=== PATIENT | female | born 1945 | race Caucasian/White ===

== ENCOUNTER 2020-08-13 15:46 | Inpatient (IN) | payer MEDICARE, OTHER ==
[~2020-08-13] VITALS: Ht 167.6 cm; Wt 57.2 kg
[~2020-08-13 15:46] MED LIST: ASCO-317 PO; ASPI-605 PO; CA C1TAB70 PO; CALC-1143 PO; CETI10CA PO; CIPR7.5D OT; CODE1CAP21 PO; FLAX10003 PO; FLUT1DIS3 IH; GUAI600T31 PO; HYDR200T81 PO; MONT10TA22 PO; NEO/3.5O OP; PANT40TA49 PO; POTASSIUM PO; PROG100C15 PO; PROP1DRO4 OP; SLOW-MAG64 MG PO; VALA500T PO; [UNRECOGNIZED DRUG - CODE] PO; [UNRECOGNIZED DRUG - CODE] PO
[2020-08-13] MEDS ORDERED: IV NS 0.9% 1,000 ML BAG IV ONE (16:00)
--- NOTE | 2020-08-13 16:00 | NUR ---
[id number], FOUND BY HOUSKEEPER IN THE FLOOR UNRESPONSIVE. NARCAN 4MG TOTAL GIVEN. PATIENT SOMNOLENT UPON ARRIVAL, ASSISTED TO BED, CHANGED INTO A GOWN, ATTACHED TO THE COMBINER OPERATOR. DR. MCCULLOUGH AT BEDSIDE FOR EVAL.
--- NOTE | 2020-08-13 16:09 | NUR ---
[facility], NEIGHBOR LEFT CONTACT # [phone]
--- NOTE | 2020-08-13 16:10 | NUR ---
IV LINE ESTABLISHED, BLOOD DRAWN AND SENT TO LAB,
--- NOTE | 2020-08-13 16:13 | NUR ---
STRAIGHT CATHETER DONE, URINE OBTAINED AND SENT TO LAB.
[2020-08-13 16:30] LABS: BASOPHILS % (AUTO) 0.2 % (0.0-2.0); EOSINOPHILS % (AUTO) 0.3 % (0.0-6.0); HEMATOCRIT 40 % (33-45); HEMOGLOBIN 12.7 g/dL (11.5-14.8); LYMPHOCYTES # (AUTO) 0.4 /CMM (0.8-4.8); LYMPHOCYTES % (AUTO) 4.9 % (20.0-44.0); MEAN CORPUSCULAR HGB CONC 32 g/dl (31.0-36.0); MEAN CORPUSCULAR VOLUME 95 fL (82-100); MONOCYTES # (AUTO) 0.1 /CMM (0.1-1.30); MONOCYTES % (AUTO) 1.5 % (2.0-12.0); NEUTROPHILS # (AUTO) 7.4 /CMM (1.8-8.9); NEUTROPHILS % (AUTO) 93.1 % (43.0-81.0); PLATELET COUNT (AUTO) 186 /CMM (150-450); RED BLOOD CELL COUNT(AUTO) 4.19 MIL/uL (4.0-5.2)
[2020-08-13 16:40] LABS: BILIRUBIN,URINE Negative (NEGATIVE); COLOR,URINE YELLOW (YELLOW); LEUKOCYTE ESTERASE ,URINE Negative (NEGATIVE); NITRITE, URINE Negative (NEGATIVE); PH,URINE 5.5 (5.0-8.0); PROTEIN,URINE Negative (NEGATIVE); UGLUCOSE Negative (NEGATIVE); UROBILINOGEN,URINE 0.2 EU/dL (0.2)
[2020-08-13 16:40] LABS: CALCIUM, SERUM 8.7 mg/dL (8.5-10.1); CARBON DIOXIDE 24 mmol/L (21-32); CHLORIDE 99 mmol/L (98-107); CREATININE 0.5 mg/dL (0.6-1.3); GLUCOSE 133 mg/dL (74-106); POTASSIUM 3.7 mmol/L (3.5-5.1); SODIUM SERUM 135 mmol/L (136-145); UREA NITROGEN, BLOOD 17 mg/dL (7-18)
[2020-08-13 16:46] LABS: ALANINE AMINOTRANSFERASE 36 U/L (12-78); ALBUMIN 3.7 g/dL (3.4-5.0); ALCOHOL, BLOOD < 3 mg/dL (0-0); ALKALINE PHOSPHATASE 117 U/L (46-116); ASPARTATE AMINOTRANSFERASE 24 U/L (15-37); BILIRUBIN,DIRECT 0.1 mg/dL (0.0-0.2); BILIRUBIN,TOTAL 0.3 mg/dL (0.2-1.0); SERUM AMMONIA 10 umol/L (11-32); TOTAL PROTEIN, SERUM 6.2 g/dL (6.4-8.2)
--- NOTE | 2020-08-13 16:46 | NUR ---
PATIENT CAME BACK FROM CT.
[2020-08-13 16:53] LABS: BACTERIA,URINE 2+ /HPF (None Seen); MUCUS,URINE Few /LPF (None Seen); SQUAMOUS EPITHELIAL CELL,UR Many /HPF (None Seen); URINE AMORPHOUS URATE Moderate /HPF (None Seen)
--- NOTE | 2020-08-13 17:15 | NUR ---
CALLED NURSING SUP FOR TELE BED.
[2020-08-13] MEDS ORDERED: MEMA10TA56 PO (17:39)
[2020-08-13] MEDS ORDERED: DICY20TA11 PO (17:39)
[2020-08-13] MEDS ORDERED: NALTREXONE PO (17:39)
[2020-08-13] MEDS ORDERED: IBUP-1957 MT (17:39)
[2020-08-13] MEDS ORDERED: OXYB10TA30 PO (17:39)
[2020-08-13] MEDS ORDERED: PROG100C15 PO (17:39)
[2020-08-13] MEDS ORDERED: MONT10TA22 PO (17:39)
[2020-08-13] MEDS ORDERED: PITA2TAB PO (17:39)
[2020-08-13] MEDS ORDERED: VALA500T40 PO (17:39)
--- NOTE | 2020-08-13 17:53 | NUR ---
PAGED CHEN MO WILL CALL BACK
[2020-08-13] MEDS ORDERED: IV D5/0.45 NACL 1,000 ML IV PRN (18:30)
[2020-08-13] MEDS ORDERED: Z GUARD REMEDY 2 OZ OINT TP PRN (18:30)
[2020-08-13] MEDS ORDERED: ONDANSETRON HCL/PF 4 MG/2 ML VIAL IVP PRN (18:30)
--- NOTE | 2020-08-13 18:35 | NUR ---
PATIENT ASLEEP. IN NO DISTRESS. VSS
--- NOTE | 2020-08-13 19:06 | NUR ---
TELE 308.1
--- NOTE | 2020-08-13 19:14 | NUR ---
REPORT GIVEN TO KEL PORTER FOR LUIS.
--- NOTE | 2020-08-13 19:29 | NUR ---
CAREGIVER/SLOT MACHINE DEPARTMENT FLOORPERSON =GELACIO [phone]
[2020-08-13 19:38] VITALS: BP 146/84
--- NOTE | 2020-08-13 19:38 | NUR ---
DYNAMITE PACKING MACHINE FEEDER NOTES PT ARRIVED TO UNIT VIA SHANTEL PT A/O X 1-2 CONFUSED NEEDS FREQUENT ORIENTATION. PT ON ROOM AIR TOLERATING WELL. VITAL SIGNS WITHIN NORMAL LIMITS. IV ACCESS NOTED ONT HE RIGHT HAND AND LEFT AC NO REDNESS OR SWELLING NOTED AT SITE. PT SKIN INS INTACT TO DISCOLORATION OR WOUNDS NOTED . PT REPORTS NO PAIN OR DISCOMFORT AT THIS TIME. PT HAS SITTER AT BEDSIDE FOR SI PT IS STATING " WHY AMI HERE I LEFT INSTRUCTIONS WHERE IS MY DOG?" ON REPEAT NURSE EXPLAINED TO PT WHY SHE WAS ADMITTED AND WILL CONTINUE TO BE CLOSELY ,MONITORED. PT ORIENTED TO ROOM ANDD UNIT. PT SAFETY PRECAUTIONS FOLLOWED CLOSELY. SIDE RAILS UP X2 HEAD OF THE BEAD ELEVATED BED LOCKED IN LOWEST POSITION. PT ON TELE MONITOR. WILL CONTINUE TO CLOSELY MONITOR PT THROUGHOUT THE SHIFT.
[2020-08-13] MEDS ORDERED: NALOXONE HCL 0.4 MG/ML AMPUL IV PRN (20:00)
[2020-08-13 20:49] VITALS: BP 146/84
[2020-08-14] VITALS: BP 125/63
--- NOTE | 2020-08-14 00:16 | NUR ---
BLOCK ENGRAVER NOTES PT WANTED WATER NURSE TRIED DOING A BEDSIDE SWALLOW EVAL PT FAILED SWALLOW EVAL PT UNABLE TO FOLLOW COMMANDS AT THIS TIME. PT URINE CULTURE RESULTS RECEIVED RESULTS RELAYED TO DR SMITH NO NEW ORDERS AT THIS TIME. WILL CONTINUE TO MONITOR.
--- NOTE | 2020-08-14 03:30 | NUR ---
BEHAVIORAL HEALTH CASE MANAGER NOTES PT FULLY AWAKE ABLE TO DO SWALLOW EVAL PT PASSED EVAL INFORMED DR SMITH AWAITING FOR ANY NEW ORDERS, PT DOES NOT HAVE ANY SI/HI AT THIS TIME. PT STATED " I DON'T LIKE THIS HOSPITAL I WANTED TO BE TAKEN TO [facility]" " I DON'T KNOW WHAT I WAS THINKING WHEN I TOOK THOSE PILLS I JUST WANT TO KNOW IF MY DOG IS OKAY AND GET OUT OF HERE" PT WAS REPORTING NAUSEA ZOFRAN 4MG WAS ADMINISTERED NAUSEA IMPROVED. WILL CONTINUE TO MONITOR.
[2020-08-14 04:00] VITALS: BP 125/57
--- NOTE | 2020-08-14 05:06 | NUR ---
CASE WORK AIDE NOTES PT REFUSED LAB DRAW WILL ATTEMPT AGAIN LATER RISK AND BENEFITS EXPLAINED X3 REFUSED X 3 WILL CONTINUE TO MONITOR. NO SI/HI AT THIS TIME.
--- NOTE | 2020-08-14 06:46 | NUR ---
MASTER AUTOMOTIVE TECHNICIAN NOTES PT REFUSED LAB DRAW AGAIN SHE DOESNT LIKE THE DRYERMAN/WOMAN SHE WANTS SOMEONE ELSE. RISK AND BENEFITS EXPLAINED X3 REFUSED X 3 PT STATED " IM NOT OPPOSED TO GETTING MY BLOOD DRAWN I JUST DONT WANT ANY OF THOSE THREE THAT CAME IN GET ME SOMEONE ELSE. LAB WILL TRY TO SEND SOMEONE ELSE LATER. PT IS NOT HAVING ANY SI/HI PT STATED " I HAVE A HOUSE IN [place] THAT IM BUYING I NEED TO CALL THE REALTOR MAKE SURE THEY KNOW I STILL WANT THE HOUSE AND TO HOLD IT FOR ME.THIS IS GOING TO BE MY NEW HOUSE."
--- NOTE | 2020-08-14 06:58 | NUR ---
FNP NOTES PT A/O X 4 PT ON ROOM AIR TOLERATING WELL. VITAL SIGNS WITHIN NORMAL LIMITS. IV ACCESS NOTED ON THE RIGHT HAND AND LEFT AC NO REDNESS OR SWELLING NOTED AT SITE. PT REPORTS NO PAIN OR DISCOMFORT AT THIS TIME. PT HAS SITTER AT BEDSIDE FOR SI PT IS STATING " I WANT TO GET OUT OF THIS PLACE I DON'T LIKE THIS HOSPITAL THIS HOSPITAL HAS HORRIBLE REVIEWS I WANTED TO GO TO [facility]" ON REPEAT NURSE EXPLAINED TO PT WHY SHE WAS ADMITTED. PT SAFETY PRECAUTIONS FOLLOWED CLOSELY. SIDE RAILS UP X2 HEAD OF THE BEAD ELEVATED BED LOCKED IN LOWEST POSITION. PT ON TELE MONITOR. WILL ENDORSE CARE TO DAY SHIFT NURSE..
[2020-08-14] MEDS ORDERED: PANT40TA49 PO (07:30)
[2020-08-14] MEDS ORDERED: VALA500T40 PO (07:30)
[2020-08-14] MEDS ORDERED: DICY20TA11 PO (07:30)
[2020-08-14] MEDS ORDERED: MONT10TA22 PO (07:30)
[2020-08-14] MEDS ORDERED: OXYB10TA30 PO (07:30)
[2020-08-14] MEDS ORDERED: PITA2TAB PO (07:30)
[2020-08-14] MEDS ORDERED: PROG100C15 PO (07:30)
--- NOTE | 2020-08-14 07:30 | NUR ---
RN MS NOTES PT IN BED, AWAKE, ALERT AND ORIENTED, NO COMPLAINT AT THIS TIME, RESPIRATIONS NORMAL, IV FLUIDS INFUSING WELL, CALL LIGHT WITHIN REACH, SITTER AT BEDSIDE, NO SI AT THIS TIME, WILL CONTINUE TO MONITOR.
[2020-08-14] MEDS ORDERED: CALC-1143 PO (07:33)
[2020-08-14] MEDS ORDERED: ASPI-605 PO (07:33)
[2020-08-14] MEDS ORDERED: ASCO-317 PO (07:33)
[2020-08-14] MEDS ORDERED: MEMA10TA56 PO (07:33)
[2020-08-14] MEDS ORDERED: FLUT1DIS3 IH (07:33)
[2020-08-14] MEDS ORDERED: IBUP-1957 PO (07:33)
[2020-08-14 08:00] VITALS: BP 147/65
[2020-08-14 08:24] LABS: BASOPHILS % (AUTO) 0.1 % (0.0-2.0); EOSINOPHILS % (AUTO) 4.5 % (0.0-6.0); HEMATOCRIT 38 % (33-45); HEMOGLOBIN 12.4 g/dL (11.5-14.8); LYMPHOCYTES # (AUTO) 0.7 /CMM (0.8-4.8); LYMPHOCYTES % (AUTO) 6.3 % (20.0-44.0); MEAN CORPUSCULAR HGB CONC 32 g/dl (31.0-36.0); MEAN CORPUSCULAR VOLUME 94 fL (82-100); MONOCYTES # (AUTO) 0.6 /CMM (0.1-1.30); MONOCYTES % (AUTO) 5.3 % (2.0-12.0); NEUTROPHILS # (AUTO) 8.7 /CMM (1.8-8.9); NEUTROPHILS % (AUTO) 83.8 % (43.0-81.0); PLATELET COUNT (AUTO) 189 /CMM (150-450); RED BLOOD CELL COUNT(AUTO) 4.08 MIL/uL (4.0-5.2); WHITE BLOOD COUNT (AUTO) 10.4 K/uL (4.3-11.0)
[2020-08-14 09:06] LABS: ALANINE AMINOTRANSFERASE 62 U/L (12-78); ALBUMIN 3.4 g/dL (3.4-5.0); ALKALINE PHOSPHATASE 102 U/L (46-116); ASPARTATE AMINOTRANSFERASE 42 U/L (15-37); BILIRUBIN,DIRECT 0.1 mg/dL (0.0-0.2); BILIRUBIN,TOTAL 0.3 mg/dL (0.2-1.0); CALCIUM, SERUM 8.4 mg/dL (8.5-10.1); CARBON DIOXIDE 23 mmol/L (21-32); CHLORIDE 103 mmol/L (98-107); CREATININE 0.5 mg/dL (0.6-1.3); GLUCOSE 117 mg/dL (74-106); MAGNESIUM 1.8 mg/dL (1.8-2.4); PHOSPHORUS 2.7 mg/dL (2.5-4.9); POTASSIUM 3.3 mmol/L (3.5-5.1); SODIUM SERUM 136 mmol/L (136-145); TOTAL PROTEIN, SERUM 5.8 g/dL (6.4-8.2); UREA NITROGEN, BLOOD 16 mg/dL (7-18)
[2020-08-14 09:18] LABS: CHOLESTEROL 179 mg/dL (<200); HDL CHOLESTEROL 87 mg/dL (40-60); LDL 75 mg/dL (0-99); THYROID STIMULATING HORMONE 0.761 uIU/mL (0.358-3.74); TRIGLYCERIDES 46 mg/dL (30-150)
[2020-08-14] MEDS ORDERED: POTASSIUM CHLORIDE 20 MEQ TAB.PRT.SR PO ONE (10:30)
--- NOTE | 2020-08-14 10:48 | NUR ---
RN MS NOTES PT SEEN BY DR. PLAZA, PLAN OF CARE DISCUSSED WITH PT, PSUCH AND PT EVAL ORDERED, PT REFUSES IV FLUIDS AND IV INSERTION, DR. PLAZA AWARE, SAFETY PRECAUTIONS OBSERVED.
[2020-08-14] MEDS ORDERED: IBUPROFEN 400 MG TABLET PO PRN (11:30)
[2020-08-14 12:00] VITALS: BP 144/63
[2020-08-14] MEDS: DICYCLOMINE HCL 10 MG CAPSULE PO SCH ×3 (13:11→20:59)
[2020-08-14 16:00] VITALS: BP 141/76
[2020-08-14] MEDS: MEMANTINE HCL 5 MG TABLET PO SCH (17:14)
--- NOTE | 2020-08-14 18:05 | NUR ---
RN MS NOTES PT IN BED, AWAKE, ALERT AND ORIENTED, NO COMPLAINT AT THIS TIME, RESPIRATIONS NORMAL, TOLERATES CURRENT DIET, SEEN BY DR. PLAZA, ALSO SEEN BY CRISIS TERRAZZO FINISHER, PLACED PT ON HOLD FOR 72 HOURS FOR DTS, PT INFORMED, PT COMPLIANT WITH MEDS AND INTERVENTION, AWAITING TRANSFER TO GEROPSYCH UNIT, VITALS STABLE, SITTER AT BEDSIDE, NO VERBALIZATION OF ANY SUICIDAL IDEATION NOTED, NEEDS ATTENDED.
--- NOTE | 2020-08-14 19:41 | NUR ---
MS RN OPENING NOTE RECEIVED PT AWAKE IN BED. A/OX4. PT STABLE ON ROOM AIR. NO SOB NOTED. NO S/S OF RESPIRATORY DISTRESS. PT IS AMBULATORY WITH ASSIST. PT HAS NO C/O PAIN AT THIS TIME. PT REFUSED IV ACCESS, MD AWARE. NO SI AT THIS TIME. SAFETY MEASURES MAINTAINED. BED IN LOWEST LOCKED POSITION, HOB ELEVATED, SIDE RAILS UP X2. CALL LIGHT AND TABLE WITHIN REACH. WILL CONTINUE WITH PLAN OF CARE.
[2020-08-14 20:00] VITALS: BP 140/68
[2020-08-14] MEDS ORDERED: ATORVASTATIN 10 MG TABLET PO SCH (22:00)
[2020-08-14] MEDS ORDERED: Medication Not On Formulary EA (Pitavastatin Calcium (Livalo) 2 MG) PO SCH (22:00)
[2020-08-15 06:08] LABS: BASOPHILS # (AUTO) 0.1 /CMM (0.0-0.2); BASOPHILS % (AUTO) 0.7 % (0.0-2.0); HEMATOCRIT 38 % (33-45); HEMOGLOBIN 12.4 g/dL (11.5-14.8); LYMPHOCYTES # (AUTO) 1.1 /CMM (0.8-4.8); MEAN CORPUSCULAR HGB CONC 33 g/dl (31.0-36.0); MEAN CORPUSCULAR VOLUME 93 fL (82-100); MONOCYTES # (AUTO) 0.5 /CMM (0.1-1.30); MONOCYTES % (AUTO) 5.3 % (2.0-12.0); NEUTROPHILS # (AUTO) 5.5 /CMM (1.8-8.9); PLATELET COUNT (AUTO) 182 /CMM (150-450); RED BLOOD CELL COUNT(AUTO) 4.11 MIL/uL (4.0-5.2); WHITE BLOOD COUNT (AUTO) 8.5 K/uL (4.3-11.0)
--- NOTE | 2020-08-15 06:23 | NUR ---
MS RN CLOSING NOTE PT IS IN BED WITH EYES CLOSED, EASILY AROUSED. A/OX4. PT STABLE ON ROOM AIR. NO SOB NOTED. NO S/S OF RESPIRATORY DISTRESS. PT IS AMBULATORY WITH ASSIST. PT HAS NO C/O PAIN AT THIS TIME. PT REFUSED IV INSERTION AND MD DEVIN AWARE. NO SI/HI AT THIS TIME. 1:1 SITTER AT BEDSIDE. PT ON 5150 HOLD FOR DTS, ENDS 08/17/20 AT 1130. ALL NEEDS HAVE BEEN MET. SAFETY PRECAUTIONS MAINTAINED AT ALL TIMES. BED IN LOWEST LOCKED POSITION, HOB ELEVATED, SIDE RAILS UP X2. CALL LIGHT AND TABLE WITHIN REACH. WILL ENDORSE TO ONCOMING NURSE FOR LUIS.
[2020-08-15 07:07] LABS: CALCIUM, SERUM 8.6 mg/dL (8.5-10.1); CARBON DIOXIDE 21 mmol/L (21-32); CHLORIDE 105 mmol/L (98-107); CREATININE 0.5 mg/dL (0.6-1.3); GLUCOSE 104 mg/dL (74-106); MAGNESIUM 1.8 mg/dL (1.8-2.4); PHOSPHORUS 2.6 mg/dL (2.5-4.9); POTASSIUM 3.8 mmol/L (3.5-5.1); SODIUM SERUM 137 mmol/L (136-145); UREA NITROGEN, BLOOD 9 mg/dL (7-18)
--- NOTE | 2020-08-15 07:30 | NUR ---
MS RN OPENING NOTE RECEIVED PATIENT AWAKE IN BED, EATING BREAKFAST. A/O X4. ON ROOM AIR - TOLERATING WELL. NO SOB NOTED. NO S/S OF RESPIRATORY DISTRESS. PATIENT IS AMBULATORY WITH ASSIST. PT REFUSES IV ACCESS, MD AWARE. PATIENT IS NOT ENDORSING SI AT THIS TIME. SITTER AT BEDSIDE. SAFETY MEASURES IMPLEMENTED. CALL LIGHT WITHIN REACH. WILL CONTINUE TO MONITOR.
[2020-08-15] MEDS: DICYCLOMINE HCL 10 MG CAPSULE PO SCH ×2 (08:54→12:44)
[2020-08-15] MEDS: MEMANTINE HCL 5 MG TABLET PO SCH (08:55)
[2020-08-15] MEDS ORDERED: FLUTICASONE/VILANTEROL 1 EACH BLST.W.DEV IH SCH (09:00)
[2020-08-15] MEDS ORDERED: MONTELUKAST SODIUM (10MG) 10 MG TABLET PO SCH (09:00)
[2020-08-15] MEDS ORDERED: ASCORBIC ACID 500 MG TABLET PO SCH (09:00)
[2020-08-15] MEDS ORDERED: Medication Not On Formulary EA (Progesterone,Micronized (Prometrium) 100 MG) PO SCH (09:00)
[2020-08-15] MEDS ORDERED: VALACYCLOVIR HCL 500 MG TABLET PO SCH (09:00)
[2020-08-15] MEDS ORDERED: CALCIUM CARBONATE 500 MG TAB.CHEW PO SCH (09:00)
[2020-08-15] MEDS ORDERED: ASPIRIN EC 81 MG TABLET.DR PO SCH (09:00)
[2020-08-15] MEDS ORDERED: FLUTICASONE/SALMETEROL 1 DISK IH SCH (09:00)
[2020-08-15] MEDS ORDERED: PANTOPRAZOLE 40 MG TABLET.DR PO SCH (09:00)
[2020-08-15] MEDS ORDERED: OXYBUTYNIN CHLORIDE 5 MG TABLET PO SCH (09:00)
[2020-08-15] MEDS ORDERED: OXYBUTYNIN CHLORIDE ER 5 MG TAB PO SCH (09:00)
[2020-08-15] MEDS ORDERED: HYDR200T4 PO (11:41)
[2020-08-15] MEDS ORDERED: METH-806 PO (11:41)
[2020-08-15] MEDS ORDERED: PROP15DR OP (11:41)
[2020-08-15] MEDS ORDERED: ATOR10TA PO (12:41)
--- NOTE | 2020-08-15 13:33 | NUR ---
MS BROACHING MACHINE REPAIRER NOTE PATIENT DISCHARGED TO GPS @ 1330. MEDICALLY STABLE. A/O X4. PATIENT IS CALM AND COOPERATIVE. NO IV ACCESS. SKIN INTACT. PATIENT EDUCATION AND EXITCARE GONE OVER WITH AND GIVEN TO PATIENT. PATIENT IS AMBULATORY WITH ASSIST. REPORT GIVEN TO RN IN GPS. ORIGINAL HOLD GIVEN TO GPS RN. PATIENT ACCOMPANIED TO GPS BY PROPAGATION MANAGER AND MYSELF VIA WHEELCHAIR.
== END 2020-08-15 13:15 | DRG 917 ==
LOC: ER 15:49 → TELE 19:21 → MED 08-14 08:03
PROVIDERS: ADMIT Nurse Practitioner Acute Care; ATTEND Student in an Organized Health Care Education/Training Program
DX: T42.3X2A Poisoning by barbiturates, intentional self-harm, initial encounter (principal); G92 Toxic encephalopathy; E87.1 Hypo-osmolality and hyponatremia; D68.59 Other primary thrombophilia; T40.602A Poisoning by unspecified narcotics, intentional self-harm, initial encounter; Z66 Do not resuscitate; Y92.009 Unspecified place in unspecified non-institutional (private) residence as the place of occurrence of the external cause; E87.6 Hypokalemia; E86.1 Hypovolemia; E11.65 Type 2 diabetes mellitus with hyperglycemia; N28.1 Cyst of kidney, acquired; Z86.018 Personal history of other benign neoplasm; J45.909 Unspecified asthma, uncomplicated; Z88.5 Allergy status to narcotic agent; Z88.0 Allergy status to penicillin; Z79.82 Long term (current) use of aspirin; Z79.899 Other long term (current) drug therapy; Z74.09 Other reduced mobility; Z20.822 Contact with and (suspected) exposure to COVID-19
CPT/HCPCS: 36415; 70450-TC; 71045-TC; 80048-TC; 80061-TC; 80076-TC; 81001; 82140-TC; 82962-TC; 83605-TC; 83735-TC; 84100-TC; 84443-TC; 84484-TC; 85025-TC; 87081-TC; 87086-TC; 97116-TC; 97530-TC; C9803; G0378; G0480; J2405; J3490; J7030

== ENCOUNTER 2020-08-15 13:29 | Inpatient (IN) | payer MEDICARE, OTHER ==
[~2020-08-15] VITALS: Ht 167.6 cm; Wt 57.2 kg
[~2020-08-15 13:29] MED LIST changes: +ATOR10TA PO; -CA C1TAB70 PO; -CETI10CA PO; -CIPR7.5D OT; -CODE1CAP21 PO; +DICY20TA11 PO; -FLAX10003 PO; -GUAI600T31 PO; +HYDR200T4 PO; -HYDR200T81 PO; +IBUP-1957 PO; +MEMA10TA56 PO; +METH-806 PO; -NEO/3.5O OP; +OXYB10TA30 PO; +PITA2TAB PO; -POTASSIUM PO; +PROP15DR OP; -PROP1DRO4 OP; -SLOW-MAG64 MG PO; -VALA500T PO; +VALA500T40 PO; -[UNRECOGNIZED DRUG - CODE] PO; -[UNRECOGNIZED DRUG - CODE] PO
--- NOTE | 2020-08-15 13:30 | NUR ---
GPS/RN ADMITTED A 74Y/O FEMALE FROM HOME VIA MS WITH SUICIDE ATTEMPT PATIENT IS BROUGHT FOR EVALUATION AND PLACED ON 5150 HOLD FOR DTS. PATIENT ADMITTING DX. PSYCHOSIS AND MEDICAL DIAGNOSIS OF ASTHMA, KIDNEY DISEASE ENCEPHALOPATHY. UPON FACE TO FACE EVALUATION, PATIENT APPEARED ALERT AND ORIENTED X 3, . PATIENT REFUSED TO SIGN PAPER WORKS. NO SOB, NO ACUTE DISTRESS, BREATHING EVEN AND UNLABORED, NO S/S OF PAIN AND DISCOMFORT. PATIENT IS UNDER THE CARE OF DR. BRODY AND DR. FIGUEROA. BELONGINGS COLLECTED FOR CONTRABAND CHECK. DR ALMAZAN ALREADY ASSESSED PT IN THE UNIT. NOTIFIED RESPONSIBLE CONSTITUTION PARTY OF THE ADMISSION. WILL CONTINUE TO MONITOR Q15 MNINS FOR SAFETY.
[2020-08-15 14:00] VITALS: BP 139/90
[2020-08-15] MEDS ORDERED: ZOLPIDEM TARTRATE 5 MG TABLET PO PRN (15:00)
[2020-08-15] MEDS ORDERED: MAG HYDROX/AL HYDROX/SIMETH 30 ML UDC PO PRN (15:00)
[2020-08-15] MEDS ORDERED: LORAZEPAM 0.5 MG TABLET PO PRN (15:00)
[2020-08-15] MEDS ORDERED: ACETAMINOPHEN 325 MG TABLET PO PRN (15:00)
[2020-08-15] MEDS ORDERED: MAGNESIUM HYDROXIDE 30 ML UDC PO PRN (15:00)
[2020-08-15 16:00] VITALS: BP 139/95
--- NOTE | 2020-08-15 16:49 | NUR ---
GPS/RN DR BRODY MADE AWARE OF ADMISSION
[2020-08-15] MEDS ORDERED: BLOOD SUGAR DIAGNOSTIC 1 EACH STRIP IN ONE (17:00)
[2020-08-15] MEDS: POLYVINYL ALCOHOL 15 ML BOTTLE OP SCH (17:54)
[2020-08-15] MEDS ORDERED: IBUPROFEN 400 MG TABLET PO PRN (19:00)
[2020-08-15] MEDS: MEMANTINE HCL 5 MG TABLET PO SCH (19:50)
[2020-08-15] MEDS: DICYCLOMINE HCL 10 MG CAPSULE PO SCH ×2 (19:51→22:00)
[2020-08-15 19:59] VITALS: BP 142/72
[2020-08-15 20:00] VITALS: BP 142/72
--- NOTE | 2020-08-15 21:02 | NUR ---
RN NOTE PATIENT IS NOTED TO BE VERY NEEDY, DEMANDING, SELECTIVE WITH EVERYTHING, PATIENT COMPLAINS ABOUT EVERYTHING, NURSES & DOCTORS WELL. PATIENT NOTED TO BE ANXIOUS & VERBALIZED THAT SHE HAS NOT RECEIVED HER HOME MEDS SINCE SHE ADMITTED TO THE HOSPITAL WHICH ARE INHALER, OXYBUTYNIN, HYDROCHLOROQUINE, CHECKED E MAR & INFORMED THE PATIENT THAT SHE IS SCHEDULED TO TAKE HER INHALER, OXYBUTYNIN, AT 0900 TOMORROW & HYDROCHLOROQUINE IS HELD BY MIRIAM BRODY UNDER MED RECON. PATIENT RELAXED AFTER THAT & WENT BACK TO BED. ALL CONCERNS WERE ADDRESSED AT THIS TIME. WILL CONTINUE TO MONITOR FOR ANY CHANGES. Addendum: 08/16/20 at 0008 by MACHO WISDOM RN CORRECTION: HYDROXYCHLOROQUINE NOT HYDROCHLOROQUINE.
--- NOTE | 2020-08-15 21:22 | NUR ---
RN NOTE VERIFIED WITH THE PATIENT IF SHE IS OK TO RECEIVE CALLS FROM HER FAMILY/RELATIVES, PER PATIENT SHE DOES NOT WANT TO TALK TO POLI AT ALL, IF THERE IS ANYONE CALLS FROM FAMILY/FRIENDS/RELATIVES, PATIENT WOULD LIKE TO KNOW WHO IT IS & WILL LET THE STAFF KNOW IF SHE WANTS TO TALK TO THAT PERSON ON THE PHONE OR NOT. DO NOT TAKE THE PHONE TO THE PATIENT BEFORE ASKING HER IF SHE IS WILLING TO TALK OR NOT.
[2020-08-15] MEDS: ATORVASTATIN 10 MG TABLET PO SCH (22:03)
--- NOTE | 2020-08-15 22:14 | NUR ---
RN NOTE DICYCLOMINE 20 MG WAS ADMINISTERED AT 1950, ANOTHER DOSE OF DICYCLOMINE 20 MG WAS SCHEDULED AT 2199. CALLED AFTER HOURS PHARMACY, SPOKE TO ADI & ADI SUGGESTED TO SKIP 2200 DOSE SINCE MEDICINE WAS GIVEN ABOUT 2 HOURS AGO & CONTINUE MEDICINE IN AM SCHEDULED. WILL CONTINUE TO MONITOR THE PATIENT FOR ANY CHANGES.
--- NOTE | 2020-08-16 00:16 | NUR ---
RN NOTE CHECKED ON PATIENT, PATIENT NOTED TO BE SLEEPING COMFORTABLY AT THIS TIME. WILL CONTINUE TO MONITOR.
--- NOTE | 2020-08-16 02:53 | NUR ---
RN NOTE PATIENT IS SLEEPING COMFORTABLY AT THIS TIME. NO ACUTE CHANGES NOTED.
--- NOTE | 2020-08-16 05:13 | NUR ---
RN NOTE PATIENT REFUSED LABS AT THIS TIME, SHE ASKED THE SOLDER MAKING LABORER TO COME BACK AGAIN LATER.
--- NOTE | 2020-08-16 06:30 | NUR ---
RN NOTE: REFUSED AM LABS PER PATIENT," I DON'T HAVE ANY MEDICAL DIAGNOSIS & I DON'T WANT ANY BLOOD DRAW." PATIENT REFUSED AM LABS DESPITE OF RISKS & BENEFITS EXPLANATIONS.
--- NOTE | 2020-08-16 06:33 | NUR ---
RN NOTE PATIENT SLEPT FOR 8 HOURS AT NIGHT, MONITORED PATIENT EVERY 15 MINUTES FOR SAFETY. PATIENT IS AWAKE AT THIS TIME & WANTED TO SIT IN THE CHAIR IN THE HALLWAY. PATIENT WAS REMINDED TO REST IN HER BED FOR SAFETY SINCE PATIENT WAS FALLING ASLEEP IN THE CHAIR BUT PATIENT INSISTED TO SIT IN THE CHAIR IN THE HALLWAY. WILL CONTINUE TO MONITOR CLOSELY FOR SAFETY, MOOD & BEHAVIOR.
[2020-08-16 08:00] VITALS: BP 142/75
[2020-08-16] MEDS: DICYCLOMINE HCL 10 MG CAPSULE PO SCH ×4 (08:41→21:17)
[2020-08-16] MEDS: MEMANTINE HCL 5 MG TABLET PO SCH ×2 (08:41→16:51)
[2020-08-16] MEDS: ESCITALOPRAM OXALATE (10 MG) 10 MG TABLET PO SCH ×2 (08:42→09:00)
[2020-08-16] MEDS: POLYVINYL ALCOHOL 15 ML BOTTLE OP SCH ×2 (08:47→17:07)
[2020-08-16] MEDS ORDERED: VALACYCLOVIR HCL 500 MG TABLET PO SCH (09:00)
[2020-08-16] MEDS ORDERED: MONTELUKAST SODIUM (10MG) 10 MG TABLET PO SCH (09:00)
[2020-08-16] MEDS ORDERED: PANTOPRAZOLE 40 MG TABLET.DR PO SCH (09:00)
[2020-08-16] MEDS ORDERED: CALCIUM CARBONATE 500 MG TAB.CHEW PO SCH (09:00)
[2020-08-16] MEDS ORDERED: OXYBUTYNIN CHLORIDE ER 5 MG TAB PO SCH (09:00)
[2020-08-16] MEDS ORDERED: FLUTICASONE/VILANTEROL 1 EACH BLST.W.DEV IH SCH (09:00)
[2020-08-16] MEDS ORDERED: ASPIRIN EC 81 MG TABLET.DR PO SCH (09:00)
[2020-08-16] MEDS ORDERED: ASCORBIC ACID 500 MG TABLET PO SCH (09:00)
--- NOTE | 2020-08-16 11:46 | NUR ---
GPS/RN pt refused lexapro 5mg in am offered x3. PT REFUSED LAB DRAW WELL
[2020-08-16 16:15] VITALS: BP 147/68
--- NOTE | 2020-08-16 20:00 | NUR ---
GPS-RN NOTES: PATIENT REFUSED WEEKLY SKIN BODY ASSESSMENT.
[2020-08-16 20:10] VITALS: BP 147/70
[2020-08-16] MEDS: ATORVASTATIN 10 MG TABLET PO SCH (21:17)
[2020-08-17 08:00] VITALS: BP 151/80
--- NOTE | 2020-08-17 08:45 | NUR ---
RN DC NOTE- PT LEAVING AMA AT THIS TIME PER DR ALMAZAN. PT REFUSED ALL TX , CARE AND MEDICAL ADVICE. DC INSTRUCTIONS GIVEN BUT PT REFUSED. VALUABLES RETURNED AND SIGNED FOR, AMA FORM SIGNED, VS STABLE, PT DENYING SI HI VH. ESCORTED OFF UNIT BY STAFF.
== END 2020-08-17 08:45 | disposition left against medical advice (07) | DRG 881 ==
LOC: GPS 13:29
PROVIDERS: ADMIT Psychiatry & Neurology Psychiatry; ATTEND Nurse Practitioner Acute Care
DX: F32.9 Major depressive disorder, single episode, unspecified (principal); G92 Toxic encephalopathy; D68.59 Other primary thrombophilia; E87.1 Hypo-osmolality and hyponatremia; J45.909 Unspecified asthma, uncomplicated; E87.6 Hypokalemia; Z91.5 Personal history of self-harm; T42.3X Poisoning by, adverse effect of and underdosing of barbiturates; T40.601 Poisoning by unspecified narcotics, accidental (unintentional); Z88.5 Allergy status to narcotic agent; Z88.0 Allergy status to penicillin; E86.1 Hypovolemia; R73.9 Hyperglycemia, unspecified; Z74.09 Other reduced mobility
CPT/HCPCS: 87081-TC